=== PATIENT | female | born 1985 | race African-American/Black ===

== ENCOUNTER 2018-05-01 17:30 | Emergency (ER) | payer OTHER ==
[~2018-05-01] VITALS: Ht 147.3 cm; Wt 77.1 kg
--- NOTE | ~2018-05-01 | EKG ---
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
--- NOTE | ~2018-05-01 | EKG ---
[address] [address] ELECTROCARDIOGRAM REPORT Name: GENI TUCKER Room #: DEP KENTRELL Casillas#: [id number] Admission: 05/01/18 Attend Phys: Discharge: 05/01/18 Date of : 87 Report #: [id number] THIS REPORT FOR: //name// [facility] ED Test Date: 2018-05-01 Test Time: 17:45:50 Pat Name: GENI TUCKER Department: Room: Gender: F Record Cutter: KKODJOVI : 1985 Requested By: Yusuf Tang Order Number: [id number] MD: Hesham Marroquin Measurements Intervals [place] Rate: 83 P: 43 MO: 169 QRS: 44 QRSD: 86 T: 10 QT: 348 QTc: 409 Interpretive Statements Sinus rhythm Normal tracing No previous ECG available for comparison Electronically Signed On 05-02-2018 7:58:25 CDT by Hesham Marroquin [email or web address] <ELECTRONICALLY SIGNED> By: Hesham Marroquin MD, [facility] 05/02/18 0758 1745 1745 Hesham Marroquin MD, FAC /EPI
[~2018-05-01 17:30] MED LIST: ACCUNEB SO1.25 MG/1; CITRATE OF MAG296 ML PO; DEPO-PROVER150 MG/M1 INJECTION; IBUPROFEN 600600 M1 PO; NORCO 5-325 TA1 EACH PO; PROTONIX40 MG PO; ZANTAC 150MG T150 MG PO; ZOVIRAX800 MG PO; [UNRECOGNIZED DRUG - REMARK] PO
[2018-05-01 18:09] LABS: ABSOLUTE NEUTROPHILS 2.8 thou/uL (1.4-8.2); BASOPHILS 1.2 % (0.0-2.0); HEMATOCRIT 40.2 % (37.0-47.0); HEMOGLOBIN 14.1 gm/dL (12.0-15.0); LYMPHOCYTES 41.2 % (24.0-44.0); MCH 32.3 pg (26.0-34.0); MCHC 35.1 g/dL (28.0-37.0); MONOCYTES 10.2 % (1.0-8.0); PLATELET COUNT 194 thou/uL (150-400); POLYS 46.4 % (36.0-66.0); RBC 4.36 mil/uL (4.20-5.00); RDW 13.4 % (10.5-14.5); WBC 6.1 thou/uL (4.0-11.0)
[2018-05-01 19:42] LABS: ANION GAP 7 mmol/L (7-16); BUN 9 mg/dL (7-18); CALCIUM 9.1 mg/dL (8.5-10.1); CHLORIDE 106 mmol/L (98-107); CO2 26 mmol/L (21-32); CREATININE 0.8 mg/dL (0.6-1.0); GLUCOSE 94 mg/dL (74-106); POTASSIUM 3.7 mmol/L (3.5-5.1); SODIUM 139 mmol/L (136-145)
[2018-05-01 19:50] LABS: TROPONIN-I <0.06 ng/mL (<0.06)
[2018-05-01] MEDS ORDERED: MOBIC15 MG PO (19:55)
== END 2018-05-01 20:55 | disposition home or self-care (01) ==
LOC: ER 17:30
PROVIDERS: Physician Assistant
DX: R07.89 Other chest pain (principal); F17.210 Nicotine dependence, cigarettes, uncomplicated

== ENCOUNTER 2019-02-28 17:26 | Emergency (ER) | payer OTHER ==
[~2019-02-28] VITALS: Ht 147.3 cm; Wt 72.6 kg
[~2019-02-28 17:26] MED LIST changes: +MOBIC15 MG PO
[2019-02-28 18:17] LABS: URINE BILIRUBIN NEGATIVE (Negative); URINE BLOOD NEGATIVE (Negative); URINE COLOR YELLOW; URINE GLUCOSE-RANDOM* NEGATIVE (Negative); URINE KETONES NEGATIVE (Negative); URINE LEUKOCYTES-REFLEX NEGATIVE (Negative); URINE NITRITE-REFLEX NEGATIVE (Negative); URINE PROTEIN (DIPSTICK) NEGATIVE (Negative); URINE SPECIFIC GRAVITY 1.015 (1.005-1.035); URINE UROBILINOGEN 0.2 E.U./dl (0.2-1.0)
[2019-02-28 18:20] LABS: URINE CLARITY HAZY
[2019-02-28] MEDS ORDERED: AZITHROMYCIN 2250 MG PO (19:48)
[2019-02-28 19:54] VITALS: BP 130/87
== END 2019-02-28 19:55 | disposition home or self-care (01) ==
LOC: ER 17:26
PROVIDERS: Nurse Practitioner
DX: S86.911A Strain of unspecified muscle(s) and tendon(s) at lower leg level, right leg, initial encounter (principal); N89.8 Other specified noninflammatory disorders of vagina; F17.210 Nicotine dependence, cigarettes, uncomplicated; X50.1XXA Overexertion from prolonged static or awkward postures, initial encounter; Y93.89 Activity, other specified; Y92.89 Other specified places as the place of occurrence of the external cause; Y99.8 Other external cause status